=== PATIENT | female | born 2000 | race Caucasian/White ===

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

== ENCOUNTER 2019-04-28 13:05 | Emergency (ER) | payer MEDICAID ==
[~2019-04-28] VITALS: Ht 165 cm; Wt 84.0 kg
[~2019-04-28 13:05] MED LIST: CLIN300C11 PO; PRD10T PO
[2019-04-28] MEDS ORDERED: NORG1TAB15 (14:46)
[2019-04-28] MEDS ORDERED: CIPR500T4 (14:46)
--- NOTE | 2019-04-28 16:49 | ED GU-Female ---
General Chief Complaint: Rect Problems Stated Complaint: HEMRRHOID PAIN Nursing Triage Note: pt presents to ed with complaints of hemmroids x 4 days. reports she went to walk in clinic prior and has tried creams at home with no results. Source: patient Exam Limitations: no limitations History of Present Illness Date Seen by Provider: Apr 28, 2019 Time Seen by Provider: 16:48 Initial Comments 18-year-old female patient presents with complaints of hemorrhoids for 4 days. Patient states she was seen yesterday at [facility] instructed to use vkhl-yqp-zcfzouu hydrocortisone cream. Patient has also tried witch johana and Tucks pads tpjk-frg-eulmoqc without improvement. Patient reports symptoms initially began due to constipation, but denies any constipation the last 3 days. Patient reports pain is worse with ambulation, defecation, and sitting. Timing/Duration: getting worse, other (four-day onset) Severity/Quality: burning, sharp Location: other (anal/rectal pain) Radiation: none Activities at Onset: other (defecation) Prior Genitourinary Problems: similar symptoms Modifying Factors: Worsens With Defecating, Worsens With Movement, Worsens With Other (sitting) Allergies and Home Medications Allergies Coded Allergies: sulfamethoxazole (Verified Allergy, Unknown, 04/28/19) trimethoprim (Verified Allergy, Unknown, 04/28/19) Home Medications Clindamycin HCl 300 Mg Capsule, 300 MG PO TID Prescribed by: ROSAURA MARTELL on 08/20/182022 Hydrocortisone/Pramoxine 30 Gm Cream.appl, 30 GM RC UD apply to the hemorrhoids QID x 10-14 days Prescribed by: ALEAH PENNY on 04/28/191718 Lidocaine 15 Gm Cream..g., 15 GM TP UD PRN for pain apply to the hemorrhoids qid prn pain Prescribed by: ALEAH PENNY on 04/28/191718 Prednisone 10 Mg Tab, 40 MG PO DAILY Prescribed by: ROSAURA MARTELL on 08/20/182022 Patient Home Medication List Home Medication List Reviewed: Yes Review of Systems Review of Systems Constitutional: No chills, No fever Respiratory: no symptoms reported Cardiovascular: no symptoms reported Gastrointestinal: see HPI; No abdominal pain, No constipation, No diarrhea, No nausea, No vomiting; other (rectal pain/ankle pain, hemorrhoid. Denies hematochezia or melena) Genitourinary: denies burning, denies discharge, denies dysuria, denies frequency : No Musculoskeletal: no symptoms reported Skin: no symptoms reported Psychiatric/Neurological: No Symptoms Reported All Other Systemes Reviewed Negative Unless Noted: Yes (Negative excepted noted.) Past Jumecpw-Zztgmy-Bloard Hx Past Med/Social Hx: Reviewed Nursing Past Med/Soc Hx Patient Social History Recreational Drug Use: No Recent Foreign Travel: No Contact w/Someone Who Travel: No Recent Infectious Disease Expo: No Recent Hopitalizations: No Immunizations Up To Date Tetanus Booster (TDap): Less than 5yrs PED Vaccines UTD: Yes Seasonal Allergies Seasonal Allergies: No Past Medical History Surgeries: No Respiratory: No Cardiac: No Neurological: No Reproductive Disorders: No Genitourinary: No Gastrointestinal: No Musculoskeletal: No Endocrine: No HEENT: No Cancer: No Psychosocial: No Integumentary: No Blood Disorders: No Adverse Reaction/Blood Tranf: No Family Medical History Reviewed Nursing Family Hx No Pertinent Family Hx Physical Exam Vital Signs Vital Signs - First Documented 04/28/19 04/28/19 14:41 17:35 Temp 37.1 Pulse 90 Resp 16 B/P (MAP) 136/93 Pulse Ox 98 Capillary Refill : Height, Weight, BMI Height: 5'5.00" Weight: 175lbs. oz. 79.451833ot; 30.00 BMI Method:Estimated General Appearance: WD/WN, no apparent distress Cardiovascular: regular rate, rhythm, no murmur Respiratory: lungs clear, normal breath sounds, no respiratory distress, no accessory muscle use Gastrointestinal: normal bowel sounds, non tender, soft Rectal: hemorrhoids (no active bleeding noted externally), other (rectal exam deferred due to patient being unable to tolerate the seizure due to rectal pain.) Extremities: no pedal edema, normal capillary refill Neurologic/Psychiatric: alert, normal mood/affect, oriented x 3 Skin: normal color, warm/dry Progress/Results/Core Measures Suspected Sepsis SIRS Temperature: Pulse: Respiratory Rate: Blood Pressure / Mean: Results/Orders Vital Signs/I&O 04/28/19 04/28/19 14:41 17:35 Temp 37.1 37.1 Pulse 90 90 Resp 16 16 B/P (MAP) 136/93 Pulse Ox 98 Capillary Refill : Departure Communication (Admissions) Patient seen and evaluated. Plan for discharge to home with a prescription for Analpram and erinn to care. Patient instructed follow-up with her family practitioner for recheck and for formal rectal exam. Patient verbalizes understanding and agrees with the treatment plan. Impression Primary Impression: Hemorrhoids Qualified Codes: K64.9 - Unspecified hemorrhoids Disposition: HOME, SELF-CARE Condition: Improved Departure-Patient Inst. Decision time for Depature: 17:16 Referrals: [facility] (PCP/Family) Primary Care Physician Patient Instructions: Hemorrhoids Add. Discharge Instructions: All discharge instructions reviewed with patient and/or family. Voiced under standing. Medications as instructed. Tylenol Extra Strength liia-osu-dsadirx as directed for pain. Ibuprofen 800 mg every 8 hours as needed for pain. Sitz baths twice daily and after each bowel movement as needed for rectal pain. Colace stool softener, Metamucil, and/or MiraLAX ostz-wbf-obdkydf as needed for constipation. Follow-up with your family practitioner for recheck this week. Your family practitioner may do a rectal exam to further evaluate the hemorrhoids or refer you to a general surgeon for possible hemorrhoid banding versus hemorrhoidectomy. Call Monday morning for appointment time with her family practitioner. Return to the emergency department for worsened symptoms or any other concerns. Scripts Lidocaine (Recticare) 15 Gm Cream..g. 15 GM TP UD PRN for pain, #1 TUBE 0 Refills apply to the hemorrhoids qid prn pain Prov: ALEAH PENNY 04/28/19 Hydrocortisone/Pramoxine (Analpram Hc 2.5% Cream) 30 Gm Cream.appl 30 GM RC UD, #1 TUBE 0 Refills apply to the hemorrhoids QID x 10-14 days Prov: ALEAH PENNY 04/28/19 Work/School Note: Work Release Form Date Seen in the Emergency Department: Apr 28, 2019 Return to Work: Apr 30, 2019 ALEAH PENNY Apr 28, 2019 16:48
[2019-04-28] MEDS ORDERED: LIDO15CR6 TP (17:19)
[2019-04-28] MEDS ORDERED: HC A30CR RC (17:19)
== END 2019-04-28 17:34 | disposition home or self-care (01) ==
LOC: EDUNIT# 13:05 → ER 13:06
DX: K64.9 Unspecified hemorrhoids (principal); Z88.2 Allergy status to sulfonamides; Z88.1 Allergy status to other antibiotic agents; Z79.52 Long term (current) use of systemic steroids
CPT/HCPCS: 99282

== ENCOUNTER 2019-10-08 08:10 | Emergency (ER) | payer MEDICAID ==
[~2019-10-08] VITALS: Ht 165 cm; Wt 81.8 kg
[~2019-10-08 08:10] MED LIST changes: +CIPR500T4; +HC A30CR RC; +LIDO15CR6 TP; +NORG1TAB15
--- NOTE | 2019-10-08 08:48 | ED General ---
General Stated Complaint: LOWER BACK PAIN;ABD PAIN;TROUBLE URINATING History of Present Illness Date Seen by Provider: Oct 08, 2019 Time Seen by Provider: 08:43 Initial Comments 18-year-old female presents with dysuria, low back pain, suprapubic pain. Patient reports she's been having issues with her urine on and off for a month or 2. She reports she was checked about a month ago for an STD and that UTI and they are both negative. She is having significant discomfort when she urinates however at this time. She denies any fevers chills. She currently is on her menstrual cycle. She does not have any nausea vomiting or diarrhea. Allergies and Home Medications Allergies Coded Allergies: sulfamethoxazole (Verified Allergy, Unknown, 04/28/19) trimethoprim (Verified Allergy, Unknown, 04/28/19) Home Medications Cephalexin 500 Mg Tablet, 500 MG PO QID Prescribed by: DUNCAN RAZO on 10/08/19 1115 Clindamycin HCl 300 Mg Capsule, 300 MG PO TID Prescribed by: ROSAURA MARTELL on 08/20/182022 Hydrocortisone/Pramoxine 30 Gm Cream.appl, 30 GM RC UD apply to the hemorrhoids QID x 10-14 days Prescribed by: ALEAH PENNY on 04/28/191718 Lidocaine 15 Gm Cream..g., 15 GM TP UD PRN for pain apply to the hemorrhoids qid prn pain Prescribed by: ALEAH PENNY on 04/28/191718 Prednisone 10 Mg Tab, 40 MG PO DAILY Prescribed by: ROSAURA MARTELL on 08/20/182022 Patient Home Medication List Home Medication List Reviewed: Yes Review of Systems Review of Systems Constitutional: No chills, No fever EENTM: no symptoms reported Respiratory: No cough, No short of breath Cardiovascular: No chest pain, No palpitations Gastrointestinal: see HPI Genitourinary: see HPI, decreased output, dysuria, pain Musculoskeletal: back pain Skin: no symptoms reported Psychiatric/Neurological: No Symptoms Reported Hematologic/Lymphatic: No Symptoms Reported Immunological/Allergic: no symptoms reported Past Vlzzqhz-Rqindz-Lcxwuz Hx Past Med/Social Hx: Reviewed Nursing Past Med/Soc Hx Patient Social History Recent Foreign Travel: No Contact w/Someone Who Travel: No Recent Hopitalizations: No Immunizations Up To Date Tetanus Booster (TDap): Less than 5yrs PED Vaccines UTD: Yes Seasonal Allergies Seasonal Allergies: No Past Medical History Surgeries: No Respiratory: No Cardiac: No Neurological: No Reproductive Disorders: No Genitourinary: No Gastrointestinal: No Musculoskeletal: No Endocrine: No HEENT: No Cancer: No Psychosocial: No Integumentary: No Blood Disorders: No Adverse Reaction/Blood Tranf: No Family Medical History No Pertinent Family Hx Physical Exam Vital Signs Vital Signs - First Documented 10/08/19 10/08/19 08:35 11:33 Temp 37.2 Pulse 114 Resp 18 B/P (MAP) 129/84 Pulse Ox 99 O2 Delivery Room Air Capillary Refill : Height, Weight, BMI Height: 5'5.00" Weight: 175lbs. oz. 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 II- XII Norm as Tested Progress/Results/Core Measures Suspected Sepsis SIRS Temperature: Pulse: Respiratory Rate: Laboratory Tests 10/08/19 09:00: White Blood Count 16.1H Blood Pressure / Mean: Laboratory Tests 10/08/19 09:00: Creatinine 0.73, Platelet Count 300, Total Bilirubin 0.4 Results/Orders Lab Results Laboratory Tests Test 10/08/19 09:00 10/08/19 09:10 Range/Units White Blood Count 16.1 H 4.3-11.0 10^3/uL Red Blood Count 4.38 4.35-5.85 10^6/uL Hemoglobin 12.5 11.5-16.0 G/DL Hematocrit 38 35-52 % Mean Corpuscular Volume 87 80-99 FL Mean Corpuscular Hemoglobin 29 25-34 PG Mean Corpuscular Hemoglobin Concent 33 32-36 G/DL Red Cell Distribution Width 13.1 10.0-14.5 % Platelet Count 300 130-400 10^3/uL Mean Platelet Volume 9.6 7.4-10.4 FL Neutrophils (%) (Auto) 80 H 42-75 % Lymphocytes (%) (Auto) 12 12-44 % Monocytes (%) (Auto) 7 0-12 % Eosinophils (%) (Auto) 1 0-10 % Basophils (%) (Auto) 0 0-10 % Neutrophils # (Auto) 13.0 H 1.8-7.8 X 10^3 Lymphocytes # (Auto) 1.9 1.0-4.0 X 10^3 Monocytes # (Auto) 1.1 H 0.0-1.0 X 10^3 Eosinophils # (Auto) 0.1 0.0-0.3 10^3/uL Basophils # (Auto) 0.0 0.0-0.1 10^3/uL Neutrophils % (Manual) 76 % Lymphocytes % (Manual) 13 % Monocytes % (Manual) 6 % Eosinophils % (Manual) 3 % Basophils % (Manual) 0 % Band Neutrophils 2 % Blood Morphology Comment NORMAL Sodium Level 141 135-145 MMOL/L Potassium Level 3.8 3.6-5.0 MMOL/L Chloride Level 108 H 98-107 MMOL/L Carbon Dioxide Level 22 21-32 MMOL/L Anion Gap 11 5-14 MMOL/L Blood Urea Nitrogen 9 7-18 MG/DL Creatinine 0.73 0.60-1.30 MG/DL Estimat Glomerular Filtration Rate > 60 BUN/Creatinine Ratio 12 Glucose Level 102 70-105 MG/DL Calcium Level 9.1 8.5-10.1 MG/DL Corrected Calcium 8.9 8.5-10.1 MG/DL Total Bilirubin 0.4 0.1-1.0 MG/DL Aspartate Amino Transf (AST/SGOT) 16 5-34 U/L Alanine Aminotransferase (ALT/SGPT) 22 0-55 U/L Alkaline Phosphatase 46 40-136 U/L Total Protein 7.1 6.4-8.2 GM/DL Albumin 4.2 3.2-4.5 GM/DL Urine Color YELLOW Urine Clarity CLEAR Urine pH 6.0 5-9 Urine Specific [place] 1.025 H 1.016-1.022 Urine Protein NEGATIVE NEGATIVE Urine Glucose (UA) NEGATIVE NEGATIVE Urine Ketones NEGATIVE NEGATIVE Urine Nitrite NEGATIVE NEGATIVE Urine Bilirubin NEGATIVE NEGATIVE Urine Urobilinogen 0.2 < = 1.0 MG/DL Urine Leukocyte Esterase 1+ H NEGATIVE Urine RBC (Auto) 3+ H NEGATIVE Urine RBC 25-50 H /HPF Urine WBC 10-25 H /HPF Urine Squamous Epithelial Cells RARE /HPF Urine Crystals NONE /LPF Urine Bacteria FEW H /HPF Urine Casts NONE /LPF Urine Mucus NEGATIVE /LPF Urine Culture Indicated YES Urine Test NEGATIVE NEGATIVE My Orders Orders - DUNCAN RAZO DO Abdomen/Kub 1view (10/08/19 08:49) Cbc With Automated Diff (10/08/19 08:49) Comprehensive Metabolic Panel (10/08/19 08:49) Hcg,Qualitative Urine (10/08/19 08:49) Ua Culture If Indicated (10/08/19 08:49) Manual Differential (10/08/19 09:00) Urine Culture (10/08/19 09:10) Ct Abdomen/Pelvis Wo (10/08/19 10:06) Ceftriaxone For Iv Use (Rocephin For I (10/08/19 10:15) Medications Given in ED Current Medications Medications Dose Ordered Sig/Zakiya Route Start Time Stop Time Status Last Admin Dose Admin Ceftriaxone Sodium 1000 mg/ Sterile Water 10 ml @ 200 mls/hr ONCE ONCE IV 10/08/19 10:15 10/08/19 10:17 DC 10/08/19 10:24 200 MLS/HR Vital Signs/I&O 10/08/19 10/08/19 08:35 11:33 Temp 37.2 Pulse 114 76 Resp 18 18 B/P (MAP) 129/84 Pulse Ox 99 O2 Delivery Room Air Room Air Capillary Refill : Progress Note : Time: 11:14 Progress Note Patient with a urinary tract infection with concerns for maybe early pyelonephritis. I will treat her with Keflex. Patient had a negative CT abdomen and pelvis without contrast. Patient is stable will be discharged home Diagnostic Imaging Diagonstic Imaging: Xray, CT Comments [facility], [place] NAME: OSEGUERALÓPEZ [facility] REC#: [id number] PT STATUS: REG ER : 2000 PHYSICIAN: DUNCAN RAZO DO ADMIT DATE: 10/08/19/ER Draft Date of Exam:10/08/19 CT ABDOMEN/PELVIS WO EXAMINATION: CT Abdomen Pelvis without contrast. TECHNIQUE: Multiple contiguous axial images were obtained through the abdomen and pelvis without the use of intravenous contrast. All CT scans use one or more of the following dose optimizing techniques: automated exposure control, MA and/or KvP adjustment based on a patient size and exam type, or iterative reconstruction. HISTORY: Left flank pain. COMPARISON: None available. FINDINGS: Limited views of the lower thorax are unremarkable. The liver is normal without focal lesion. There is no biliary ductal dilation. Gallbladder is normal. Pancreas is normal. Spleen is normal. Adrenal glands are normal. The kidneys are normal. There is no hydronephrosis. Urinary bladder is normal. Visualized bowel is normal in caliber without obstruction or inflammation. The appendix is normal. No renal or ureteral stones are seen. No free fluid or air. No abdominal or pelvic lymphadenopathy. Aorta is normal in caliber without aneurysm. There are no suspicious osseus lesions. IMPRESSION: 1. No acute abnormality in the abdomen or pelvis. No renal or ureteral calculi. [facility] [place], [place] NAME: LÓPEZ OSEGUERA [facility] REC#: [id number] PT STATUS: REG ER : 2000 PHYSICIAN: DUNCAN RAZO DO ADMIT DATE: 10/08/19/ER Signed Date of Exam:10/08/19 ABDOMEN/KUB 1VIEW EXAM: ABDOMEN/KUB 1VIEW INDICATION: Back pain. Abdominal pain. COMPARISON: None. FINDINGS: Nonspecific bowel gas pattern. No large stool burden. No radiopaque foreign bodies. No acute osseous findings. IMPRESSION: No acute radiographic findings in the abdomen. Departure Impression Primary Impression: Cystitis Disposition: HOME, SELF-CARE Condition: Stable Departure-Patient Inst. Referrals: [facility] (PCP/Family) Primary Care Physician Patient Instructions: Urinary Tract Infections in Adults, Bladder Pain Syndrome (Interstitial Cystitis) Add. Discharge Instructions: Follow-up with your primary care provider in approximately 5-7 days for recheck of today symptoms Scripts Cephalexin (Cephalexin) 500 Mg Tablet 500 MG PO QID, #20 TAB 0 Refills Prov: DUNCAN RAZO DO 10/08/19 DUNCAN RAZO DO Oct 08, 2019 08:48
--- OUTSIDE RECORDS SUMMARY | 2019-10-08 09:00 | XMS REPORT ---
Author Author Zora SR [facility] Address [address] [place] [address] Care Team Providers Care Atmospheric Chemist Name Role Phone FLORENCIA SR Unavailable PROBLEMS Type Condition ICD9-CM Code RVD38-AE Code Onset Dates Condition S tatus SNOMED Code Problem Seasonal allergic rhinitis due to other allergic trigger J30.89 Active 558583162 ALLERGIES No Information ENCOUNTERS Encounter Location Date Diagnosis [place] [address] [address] Apr, [place] [address] [address] Jan, Pilonidal cyst with abscess L05.01 [place] [address] [address] 07 Nov, 2016 Bronchitis J40 [facility] [address] [place] [id number] [address] [place] [id number] 28 Sep, 2016 Encounter for dental examina tion Z01.20 [facility] [address] [address] 16 Aug, 2016 Well child check Z00.129 ; D ietary counseling Z71.3 ; Exercise counseling Z71.89 and Encounter for well child visit with abnormal findings Z00.121 [facility] [address] [place] [id number] [address] [place] [address] July, Seasonal allergic rhinitis d ue to other allergic trigger J30.89 [facility] [address] [place] [id number] [address] [place] [address] July, Acute cystitis without hemat uria N30.00 [facility] [address] [place] [id number] [address] [place] [address] July, Sexually active at young age Z72.51 ; Dysuria R30.0 and Acute cystitis without hematuria N30.00 [facility] [address] [id number] [address] [place] [address] Sep, Papular urticaria 698.2 and Insect bites 919.4 [facility] [address] [id number] [address] [place] [address] Jun, [facility] [address] [id number] [address] [place] [address] Jun, [facility] [address] [id number] [address] [place] [phone] Jan, [facility] [address] [id number] [address] [place] [phone] Jan, [facility] [address] [id number] [address] [place] [phone] Dec, [facility] [address] [id number] [address] [place] [phone] Dec, [facility] [address] [id number] [address] [place] [phone] Oct, [facility] [address] [id number] [address] [place] [address] Oct, [facility] [address] [id number] [address] [place] [address] July, [facility] [address] [id number] [address] [place] [address] Jun, [facility] [address] [facility] [id number] [address] [place] [address] May, IMMUNIZATIONS No Known Immunizations SOCIAL HISTORY Never Assessed REASON FOR VISIT PLAN OF CARE VITAL SIGNS Height 65 in 2013-11-05 Weight 137.8 lbs 2013-11-05 Temperature 98 degrees Fahrenheit 2013-11-05 Heart Rate 100 bpm 2013-11-05 Respiratory Rate 20 2013-11-05 Blood pressure systolic 98 mmHg 2013-11-05 Blood pressure diastolic 68 mmHg 2013-11-05 MEDICATIONS Unknown Medications RESULTS No Results PROCEDURES Procedure Date Ordered Result Body Site STREP A ASSAY W/OPTIC Nov 05, 2013 INSTRUCTIONS MEDICATIONS ADMINISTERED No Known Medications
--- OUTSIDE RECORDS SUMMARY | 2019-10-08 09:00 | XMS REPORT ---
Author Author Zora Hampton Doctor Organization [facility] Address Unknown Phone Unavailable Care Team Providers Care Writer Technical Publications Name Role Phone Migration, Doctor Unavailable Unavailable PROBLEMS Type Condition ICD9-CM Code ZCX79-KM Code Onset Dates Condition S tatus SNOMED Code Problem Seasonal allergic rhinitis due to other allergic trigger J30.89 Active [id number] ALLERGIES No Information ENCOUNTERS Encounter Location Date Diagnosis [place] [address] [address] Apr, [place] [address] [address] Jan, Pilonidal cyst with abscess L05.01 [place] [address] [address] 07 Nov, 2016 Bronchitis J40 [facility] [address] [place] [id number] [address] [place] [id number] 28 Sep, 2016 Encounter for dental examina tion Z01.20 [place] [address] [place] [id number] [address] [place] [phone] 16 Aug, 2016 Well child check Z00.129 ; D ietary counseling Z71.3 ; Exercise counseling Z71.89 and Encounter for well child visit with abnormal findings Z00.121 [facility] [address] [place] [id number] [address] [place] [address] July, Seasonal allergic rhinitis d ue to other allergic trigger J30.89 [place] [address] [place] [id number] [address] [place] [address] July, Acute cystitis without hemat uria N30.00 [facility] [address] [place] [id number] [address] [place] [address] July, Sexually active at young age Z72.51 ; Dysuria R30.0 and Acute cystitis without hematuria N30.00 [facility] [address] [id number] [address] [place] [address] 15 Sep, 2014 Papular urticaria 698.2 and Insect bites 919.4 [facility] [address] [id number] [address] [place] [phone] 14 Jun, 2014 [facility] [address] [id number] [address] [place] [address] Jun, [facility] [address] [id number] [address] [place] [address] Jan, [facility] [address] [id number] [address] [place] [address] Jan, [facility] [address] [id number] [address] [place] [phone] Dec, [facility] [address] [id number] [address] [place] [phone] Dec, [facility] [address] [id number] [address] [place] [phone] Oct, [facility] [address] [id number] [address] [place] [address] Oct, [facility] [address] [id number] [address] [place] [phone] July, [facility] [address] [id number] [address] [place] [phone] Jun, [facility] [address] [id number] [address] [place] [address] May, IMMUNIZATIONS No Known Immunizations SOCIAL HISTORY Never Assessed REASON FOR VISIT PLAN OF CARE VITAL SIGNS Height 65 in 2014-01-31 Weight 138.61 lbs 2014-01-31 Temperature 99.4 degrees Fahrenheit 2014-01-31 Heart Rate 80 bpm 2014-01-31 Respiratory Rate 16 2014-01-31 Blood pressure systolic 100 mmHg 2014-01-31 Blood pressure diastolic 70 mmHg 2014-01-31 MEDICATIONS Unknown Medications RESULTS No Results PROCEDURES No Known procedures INSTRUCTIONS MEDICATIONS ADMINISTERED No Known Medications
--- OUTSIDE RECORDS SUMMARY | 2019-10-08 09:00 | XMS REPORT ---
Author Author Zora Hampton Doctor Organization [facility] Address Unknown Phone Unavailable Care Team Providers Care Carpet Technician Name Role Phone Migration, Doctor Unavailable Unavailable PROBLEMS Type Condition ICD9-CM Code ACY19-LK Code Onset Dates Condition S tatus SNOMED Code Problem Seasonal allergic rhinitis due to other allergic trigger J30.89 Active [id number] ALLERGIES No Information ENCOUNTERS Encounter Location Date Diagnosis [place] [address] [address] Nov, Positive Chlamyida test A74. 9 [place] [address] [address] Oct, Counseling for control , oral contraceptives Z30.09 ; Concern about STD in female without diagnosis Z71.1 and Dysuria R30.0 [place] [address] [place] [id number] [address] [place] [address] Apr, [place] [address] [address] Jan, Pilonidal cyst with abscess L05.01 [place] [address] [place] [id number] [address] [place] [phone] Nov, Bronchitis J40 [facility] [address] [place] [id number] [address] [place] [id number] Sep, Encounter for dental examina tion Z01.20 [place] [address] [address] 16 Aug, 2016 Well child check Z00.129 ; D ietary counseling Z71.3 ; Exercise counseling Z71.89 and Encounter for well child visit with abnormal findings Z00.121 [place] [address] [address] July, Seasonal allergic rhinitis d ue to other allergic trigger J30.89 [facility] [address] [id number] [address] [place] [address] July, Acute cystitis without hemat uria N30.00 [facility] [address] [id number] [address] [place] [address] July, Sexually active at young age Z72.51 ; Dysuria R30.0 and Acute cystitis without hematuria N30.00 [facility] [address] [id number] [address] [place] [address] Sep, Papular urticaria 698.2 and Insect bites 919.4 [facility] [address] [id number] [address] [place] [phone] Jun, [facility] [address] [facility] [id number] [address] [place] [phone] Jun, [facility] [address] [id number] [address] [place] [phone] Jan, [facility] [address] [id number] [address] [place] [address] Jan, [facility] [address] [id number] [address] [place] [phone] Dec, [facility] [address] [id number] [address] [place] [phone] Dec, [facility] [address] [id number] [address] [place] [phone] Oct, [facility] [address] [id number] [address] [place] [phone] Oct, [facility] [address] [id number] [address] [place] [phone] July, [facility] [address] [id number] [address] [place] [phone] Jun, [facility] [address] [id number] [address] [place] [address], [place] [address] 15 May, 2010 IMMUNIZATIONS No Known Immunizations SOCIAL HISTORY Never Assessed REASON FOR VISIT PLAN OF CARE VITAL SIGNS Height 65 in 2014-01-07 Weight 138.3 lbs 2014-01-07 Temperature 98.6 degrees Fahrenheit 2014-01-07 Heart Rate 88 bpm 2014-01-07 Respiratory Rate 18 2014-01-07 MEDICATIONS Unknown Medications RESULTS No Results PROCEDURES Procedure Date Ordered Result Body Site STREP A ASSAY W/OPTIC Jan 07, 2014 INSTRUCTIONS MEDICATIONS ADMINISTERED No Known Medications
--- OUTSIDE RECORDS SUMMARY | 2019-10-08 09:01 | XMS REPORT | Continuity of Care Document ---
Demographics Preferred Language Unknown Marital Status Unknown Denominational Affiliation Unknown Race Unknown Ethnic Group Unknown Author Organization Unknown Address Unknown Phone Unavailable Allergies Active Description Code Type Severity Reaction Onset Reported/Identified Relationship to Patient Clinical Status Yes No Known Drug Allergies [id number] Drug Allergy Unknown N/A 01/16/2012 Yes sulfamethoxazole [id number] Drug Allergy Unknown N/A 04/28/2019 Yes trimethoprim [id number] Drug Allergy Unknown N/A 04/28/2019 Medications There is no data. Problems Date Dx Coded Attending Type Code Diagnosis Diagnosed By 05/25/2010 MARIE RODRIGUEZ DO 477.9 ALLERGIC RHINITIS CAUSE UNSPECIFIED 05/25/2010 MARIE RODRIGUEZ DO V20.2 WELL CHILD 05/25/2010 MYAH REYES MD 47 7.9 ALLERGIC RHINITIS CAUSE UNSPECIFIED 05/25/2010 MYAH REYES MD S V2 0.2 WELL CHILD 05/25/2010 MYAH REYES MD S 47 7.9 ALLERGIC RHINITIS CAUSE UNSPECIFIED 05/25/2010 MYAH REYES MD S V2 0.2 WELL CHILD 01/16/2012 Ot 842.00 01/16/2012 Ot 959.3 01/16/2012 Ot E000.8 01/16/2012 Ot E006.0 01/16/2012 Ot E849.4 01/16/2012 Ot E885.1 07/09/2012 MARIE RODRIGUEZ DO 845.00 ANKLE SPRAIN 07/09/2012 MYAH REYES MD S 845.00 ANKLE SPRAIN 07/09/2012 MYAH REYES MD S 845.00 ANKLE SPRAIN 11/05/2013 MARIE RODRIGUEZ DO 034.0 STREP THROAT 11/05/2013 MYAH REYES MD S 03 4.0 STREP THROAT 11/05/2013 MYAH REYES MD S 03 4.0 STREP THROAT 01/07/2014 MYAH REYES MD S 46 2 PHARYNGITIS ACUTE 01/07/2014 MYAH REYES MD S 78 4.0 HEADACHE 01/07/2014 MYAH REYES MD S 46 2 PHARYNGITIS ACUTE 01/07/2014 AMY CATHERINE, MYAH S 78 4.0 HEADACHE 01/31/2014 AMY CATHERINE, MYAH S 789.00 ABDOMINAL PAIN UNSPECIFIED SITE 12/24/2014 KRISTEN GAN APRN Ot M25.571 PAIN IN RIGHT ANKLE AND JOINTS OF RIGHT 12/24/2014 KRISTEN GAN APRN Ot S93.401A SPRAIN OF UNSPECIFIED LIGAMENT OF RIGHT 12/24/2014 KRISTEN GAN APRN Ot X58.XXXA EXPOSURE TO OTHER SPECIFIED FACTORS, INI 12/24/2014 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 Y99 .8 OTHER EXTERNAL CAUSE STATUS 12/25/2014 KRISTEN GAN APRN Ot M25.571 12/25/2014 KRISTEN GAN APRN Ot S93.401A 12/25/2014 KRISTEN GAN APRN Ot X58.XXXA 12/25/2014 KRISTEN GAN APRN Ot Y99 .8 12/29/2014 KRISTEN GAN APRN Ot M25.571 12/29/2014 KRISTEN GAN APRN Ot S93.401A 12/29/2014 KRISTEN GAN APRN Ot X58.XXXA 12/29/2014 KRISTEN GAN APRN Ot Y99 .8 08/20/2018 ROSAURA MARTELL DO, Ot L08.9 LOCAL INFECTION OF THE SKIN AND SUBCUTAN 08/20/2018 ROSAURA MARTELL DO, Ot L98.9 DISORDER OF THE SKIN AND SUBCUTANEOUS TI 08/20/2018 ROSAURA MARTELL DO Ot S40.862 A INSECT BITE (NONVENOMOUS) OF LEFT UPPER 08/20/2018 ROSAURA MARTELL DO Ot W57.XXX A BIT/STUNG BY NONVENOM INSECT OTH NONVE 08/20/2018 ROSAURA MARTELL DO Ot Z79.52 MANUAL WINDER (CURRENT) USE OF SYSTEMIC STER 08/23/2018 ROSAURA MARTELL DO Ot L08.9 LOCAL INFECTION OF THE SKIN AND SUBCUTAN 08/23/2018 ROSAURA MARTELL DO, Ot L98.9 DISORDER OF THE SKIN AND SUBCUTANEOUS TI 08/23/2018 ROSAURA MARTELL DO Ot S40.861 A INSECT BITE (NONVENOMOUS) OF RIGHT UPPER 08/23/2018 ROSAURA MARTELL DO Tyrell Ot W57.XXX A BIT/STUNG BY NONVENOM INSECT OTH NONVE 08/23/2018 JAYSHREE MEHTAROSAURA Ot Z79.52 MANUAL WINDER (CURRENT) USE OF SYSTEMIC STER 08/24/2018 JAYSHREE MEHTA ROSAURA K Ot L08.9 LOCAL INFECTION OF THE SKIN AND SUBCUTAN 08/24/2018 JAYSHREE MEHTAROSAURA Ot L98.9 DISORDER OF THE SKIN AND SUBCUTANEOUS TI 08/24/2018 JAYSHREE MEHTAROSAURA Ot S40.862 A INSECT BITE (NONVENOMOUS) OF LEFT UPPER 08/24/2018 JAYSHREE MEHTAAMADEOA Tyrell Ot W57.XXX A BIT/STUNG BY NONVENOM INSECT OTH NONVE 08/24/2018 JAYSHREE MEHTAROSAURA Ot Z79.52 [facility] (CURRENT) USE OF SYSTEMIC STER 05/03/2019 ALEAH GALLOWAY Ot K64.9 UNSPECIFIED HEMORRHOIDS 05/03/2019 ALEAH GALLOWAY Ot Z79.52 [facility] (CURRENT) USE OF SYSTEMIC STER 05/03/2019 ALEAH GALLOWAY Ot Z88.1 ALLERGY STATUS TO OTHER ANTIBIOTIC AGENT 05/03/2019 ALEAH GALLOWAY Ot Z88.2 ALLERGY STATUS TO SULFONAMIDES STATUS Procedures Code Description [place] [id number] STRE P A (IN-HOUSE) 11/05/2013 83867 STRE P A (IN-HOUSE) 01/07/2014 62845 BMP 01/13/2014 Results Test Result Range Urine Culture, Routine - 07/19/16 12:17 Urine Culture, Routine Note CULTURE, URINE - 04/16/19 12:59 CULTURE, URINE, ROUTINE SEE NOTE NRG GC/CHLAMYDIA (SWAB OR URINE)-RAPID - 10/30 11:09 CHLAMYDIA TRACHOMATIS RNA, TMA NOT DETECTED NOT DETECTED NEISSERIA GONORRHOEAE RNA, TMA NOT DETECTED NOT DETECTED COMMENT NRG CULTURE, GENITAL - 09/18/19 11:09 CULTURE, GENITAL NRG Encounters ACCT No. Visit Date/Time Discharge Status Pt. Type Provider Facility Loc./Unit Complaint [id number] 07/21/2016 19:07:00 Document Registration [id number] 04/27/2019 15:00:00 04/27/2019 23:59:5 9 CLS Outpatient INOCENCIA CATHERINE, [facility]LE[facility] [id number] 09/18/2019 10:00:00 Document Registration [id number] 04/16/2019 11:40:00 Document Registration [id number] 01/31/2014 13:57:00 01/31/2014 23:59: 59 CLS Outpatient AMY CATHERINE, MYAH Carlson [id number] 01/07/2014 09:58:00 01/07/2014 23:59: 59 CLS Outpatient AMY CATHERINE, MYAH Carlson [id number] 11/05/2013 11:00:00 11/05/2013 23:59: 59 CLS Outpatient JENNIFER MARIE K [id number] 04/28/2019 13:06:00 020 17:34:00 DIS Outpatient ALEAH GALLOWAY [facility] ER HEMRRHOID PAIN [id number] 08/20/2018 20:11:00 019 20:30:00 DIS Emergency ROSAURA MARTELL DO a [facility] ER L ARM REDNESS [id number] 12/24/2014 10:53:00 015 12:14:00 DIS Emergency KRISTEN GAN APRN [facility] ER RT ANKLE PAIN [id number] 01/16/2012 19:31:00 Document Registration
[2019-10-08 09:15] LABS: BASOPHILS % (AUTO) 0 % (0-10); EOSINOPHILS # (AUTO) 0.1 10^3/uL (0.0-0.3); EOSINOPHILS % (AUTO) 1 % (0-10); HEMATOCRIT 38 % (35-52); HEMOGLOBIN 12.5 G/DL (11.5-16.0); LYMPHOCYTES # (AUTO) 1.9 X 10^3 (1.0-4.0); LYMPHOCYTES % (AUTO) 12 % (12-44); MEAN CORPUSCULAR HEMOGLOBIN 29 PG (25-34); MEAN CORPUSCULAR HGB CONC 33 G/DL (32-36); MEAN CORPUSCULAR VOLUME 87 FL (80-99); MEAN PLATELET VOLUME 9.6 FL (7.4-10.4); MONOCYTES # (AUTO) 1.1 X 10^3 (0.0-1.0); MONOCYTES % (AUTO) 7 % (0-12); NEUTROPHILS % (AUTO) 80 % (42-75); PLATELET COUNT 300 10^3/uL (130-400); RED CELL DISTRIBUTION WIDTH 13.1 % (10.0-14.5); WHITE BLOOD COUNT 16.1 10^3/uL (4.3-11.0)
[2019-10-08 09:19] LABS: BILIRUBIN,URINE NEGATIVE (NEGATIVE); CLARITY,URINE CLEAR; COLOR,URINE YELLOW; GLUCOSE, URINE (UA) NEGATIVE (NEGATIVE); KETONES,URINE NEGATIVE (NEGATIVE); LEUKOCYTE ESTERASE ,URINE 1+ (NEGATIVE); NITRITE,URINE NEGATIVE (NEGATIVE); PROTEIN,URINE NEGATIVE (NEGATIVE)
[2019-10-08 09:29] LABS: ALBUMIN 4.2 GM/DL (3.2-4.5)
[2019-10-08 09:30] LABS: CHLORIDE 108 MMOL/L (98-107); POTASSIUM 3.8 MMOL/L (3.6-5.0); SODIUM 141 MMOL/L (135-145)
[2019-10-08 09:31] LABS: CALCIUM 9.1 MG/DL (8.5-10.1)
[2019-10-08 09:32] LABS: GLUCOSE 102 MG/DL (70-105); TOTAL PROTEIN 7.1 GM/DL (6.4-8.2)
[2019-10-08 09:33] LABS: CARBON DIOXIDE 22 MMOL/L (21-32)
[2019-10-08 09:34] LABS: BILIRUBIN,TOTAL 0.4 MG/DL (0.1-1.0)
[2019-10-08 09:36] LABS: ALKALINE PHOSPHATASE 46 U/L (40-136); CREATININE SERUM 0.73 MG/DL (0.60-1.30); GFR ESTIMATED > 60
[2019-10-08 09:36] LABS: BACTERIA,URINE FEW /HPF; RBC,URINE 25-50 /HPF; SQUAMOUS EPITHELIAL CELL,UR RARE /HPF
[2019-10-08 09:37] LABS: BUN/CREATININE RATIO 12
[2019-10-08 09:39] LABS: ALANINE AMINOTRANSFERASE 22 U/L (0-55)
--- NOTE | 2019-10-08 09:54 | Diagnostic Imaging Report ---
EXAM: ABDOMEN/KUB 1VIEW INDICATION: Back pain. Abdominal pain. COMPARISON: None. FINDINGS: Nonspecific bowel gas pattern. No large stool burden. No radiopaque foreign bodies. No acute osseous findings. IMPRESSION: No acute radiographic findings in the abdomen. Dictated by: Dictated on workstation # [id number]
[2019-10-08 10:12] LABS: BAND NEUTROPHILS 2 %; BASOPHILS % (MANUAL) 0 %; EOSINOPHILS % (MANUAL) 3 %; LYMPHOCYTES % (MANUAL) 13 %; MONOCYTES % (MANUAL) 6 %; NEUTROPHILS % (MANUAL) 76 %
[2019-10-08 10:13] LABS: RBC MORPH NORMAL
[2019-10-08] MEDS ORDERED: LIDOCAINE 1% INJ 20 ML 20 ML VIAL INJ ONE (10:15)
[2019-10-08] MEDS ORDERED: cefTRIAXone 1,000 MG/2.86 ml vial (IM ONLY) IM ONE (10:15)
[2019-10-08] MEDS ORDERED: cefTRIAXone FOR IV USE 1,000 MG in WATER (STERILE) FOR INJECTION 10 ML IV ONE (10:15)
--- NOTE | 2019-10-08 11:04 | Diagnostic Imaging Report ---
EXAMINATION: CT Abdomen Pelvis without contrast. TECHNIQUE: Multiple contiguous axial images were obtained through the abdomen and pelvis without the use of intravenous contrast. All CT scans use one or more of the following dose optimizing techniques: automated exposure control, MA and/or KvP adjustment based on a patient size and exam type, or iterative reconstruction. HISTORY: Left flank pain. COMPARISON: None available. FINDINGS: Limited views of the lower thorax are unremarkable. The liver is normal without focal lesion. There is no biliary ductal dilation. Gallbladder is normal. Pancreas is normal. Spleen is normal. Adrenal glands are normal. The kidneys are normal. There is no hydronephrosis. Urinary bladder is normal. Visualized bowel is normal in caliber without obstruction or inflammation. The appendix is normal. No renal or ureteral stones are seen. No free fluid or air. No abdominal or pelvic lymphadenopathy. Aorta is normal in caliber without aneurysm. There are no suspicious osseus lesions. IMPRESSION: 1. No acute abnormality in the abdomen or pelvis. No renal or ureteral calculi. Dictated by: Dictated on workstation # [id number]
[2019-10-08] MEDS ORDERED: CEPH500T PO (11:15)
== END 2019-10-08 11:32 | disposition home or self-care (01) ==
LOC: EDUNIT# 08:10 → ER 08:12
DX: N30.90 Cystitis, unspecified without hematuria (principal); Z88.2 Allergy status to sulfonamides; Z88.1 Allergy status to other antibiotic agents; Z79.52 Long term (current) use of systemic steroids
CPT/HCPCS: 36415; 74018; 74176; 80053; 81000; 84703; 85007; 85027; 87077; 87088